=== PATIENT | female | born 1995 | race Two or more races ===

== ENCOUNTER 2024-01-27 08:10 | Emergency (ER) | payer OTHER ==
[~2024-01-27] VITALS: Ht 157.5 cm; Wt 86.4 kg
[2024-01-27 08:34] LABS: BASOPHILS % (AUTO) 0.5 % (0.0-2.0); EOSINOPHILS % (AUTO) 0.8 % (1.0-6.0); HEMATOCRIT 39.8 % (36-46); HEMOGLOBIN 12.8 g/dL (12.0-16.0); LYMPHOCYTES # (AUTO) 1.7 K/uL (1.0-4.8); LYMPHOCYTES % (AUTO) 18.3 % (22.0-44.0); MEAN CORPUSCULAR HEMOGLOBIN 26.2 pg (26.0-34.0); MEAN CORPUSCULAR HGB CONC 32.1 G/dL (31.0-37.0); MEAN CORPUSCULAR VOLUME 82 fL (80-100); MONOCYTES # (AUTO) 0.3 K/uL (0.1-1.0); MONOCYTES % (AUTO) 3.5 % (2.0-9.0); NEUTROPHILS % (AUTO) 76.9 % (40.0-70.0); PLATELET COUNT (AUTO) 311 K/uL (150-450); RED BLOOD CELL COUNT(AUTO) 4.89 MIL/uL (4.00-5.20); RED CELL DISTRIBUTION WIDTH 14.6 % (11.5-14.5); WHITE BLOOD COUNT (AUTO) 9.2 K/uL (4.5-11.0)
[2024-01-27 08:43] LABS: ANION GAP 10 mmol/L (8-16); CALCIUM, TOTAL 8.8 mg/dL (8.8-10.5); CARBON DIOXIDE 27 mmol/L (22-29); CHLORIDE 101 mmol/L (98-107); CREATININE 0.75 mg/dL (0.60-1.30); GLOMERULAR FILTR. RATE CALC > 60 mL/min (>60); GLUCOSE,RANDOM 108 mg/dL (70-110); POTASSIUM 3.6 mmol/L (3.5-5.1); SODIUM SERUM 138 mmol/L (136-145); UREA NITROGEN, BLOOD 11 mg/dL (7-18)
[2024-01-27 08:53] LABS: APPEARANCE,URINE CLEAR (CLEAR); BILIRUBIN,URINE NEGATIVE (NEGATIVE); COLOR,URINE LIGHT YELLOW (YELLOW); GLUCOSE, URINE (UA) NEGATIVE (NEGATIVE); KETONES,URINE NEGATIVE (NEGATIVE); LEUKOCYTE ESTERASE ,URINE TRACE (NEGATIVE); NITRATE,URINE NEGATIVE (NEGATIVE); OCCULT BLOOD,URINE LARGE (NEGATIVE); PROTEIN,URINE TRACE mg/dL (NEGATIVE); SPECIFIC GRAVITIY, URINE 1.021 (1.003-1.030); UROBILINOGEN,URINE <=1.0 mg/dL (<=1.0)
[2024-01-27 08:54] LABS: HCG,QUANTITATIVE < 1 mIU/mL (0-6); LIPASE 17 U/L (16-77)
[2024-01-27 08:58] LABS: BACTERIA,URINE Few /HPF (None Seen); RBC,URINE 26-50 /HPF (0-2); SQUAMOUS EPITHELIAL CELL,UR Few /LPF (None Seen); WBC,URINE 0-2 /HPF (0-5)
[2024-01-27 09:06] LABS: ALANINE AMINOTRANSFERASE 19 U/L (12-78); ALBUMIN 3.6 g/dL (3.4-5.0); ALKALINE PHOSPHATASE 99 U/L (46-116); ASPARTATE AMINOTRANSFERASE 13 U/L (15-37); BILIRUBIN,TOTAL 0.8 mg/dL (0.1-1.0); TOTAL PROTEIN, SERUM 8.2 g/dL (6.4-8.2)
[2024-01-27] MEDS: SODIUM CHLORIDE 0.9% 1,000 ML IV ONE (09:19)
[2024-01-27] MEDS: ONDANSETRON HCL 4 MG/2 ML VIAL IVP ONE (09:20)
[2024-01-27] MEDS: PANTOPRAZOLE SODIUM 40 MG/VIAL IVP ONE (09:20)
[2024-01-27] MEDS: MAG HYDROX/ALUMINUM HYD/SIMETH 30 ML SUSPENSION UDCUP PO ONE (09:20)
[2024-01-27] MEDS ORDERED: ONDA-104 PO (10:38)
[2024-01-27] MEDS: HYDROCODONE/ACETAMINOPHEN 5-325 MG TABLET PO ONE (10:44)
[2024-01-27 11:27] VITALS: BP 108/67; PULSE 76; RESP 18; TEMP 98.2
== END 2024-01-27 11:33 | disposition home or self-care (01) ==
LOC: EMS 08:10
DX: R10.13 Epigastric pain (principal); R11.2 Nausea with vomiting, unspecified
CPT/HCPCS: 80048; 80076; 81001; 83690; 84702; 85025; 36415; 99284; 96361; 96374; 96375; J2405; C9113; J7030; 99285

== ENCOUNTER 2025-03-15 16:31 | Emergency (ER) | payer OTHER ==
[~2025-03-15] VITALS: Ht 157.5 cm; Wt 81.8 kg
[~2025-03-15 16:31] MED LIST: ONDA-104 PO
[2025-03-15 16:34] VITALS: BP 115/76; PULSE 80; RESP 18; TEMP 97.9; O2SAT 98
[2025-03-15] MEDS: PERTUSS(ACELL),DIPH,TET/PF 0.5 ML SYRINGE [ADULT] IM. ONE (18:10)
[2025-03-15] MEDS: LIDOCAINE 1% 10 ML VIAL SQ ONE (18:11)
== END 2025-03-15 18:33 | disposition home or self-care (01) ==
LOC: EMS 16:31
DX: S61.511A Laceration without foreign body of right wrist, initial encounter (principal); W26.8XXA Contact with other sharp object(s), not elsewhere classified, initial encounter; Y93.89 Activity, other specified; Y92.89 Other specified places as the place of occurrence of the external cause; Y99.8 Other external cause status
CPT/HCPCS: 99283; 90715; 90471; 12002; J3490